=== PATIENT | female | born 1990 | race Caucasian/White ===

== ENCOUNTER 2019-08-17 12:13 | Emergency (ER) | payer OTHER, SELFPAY ==
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
== END 2019-08-17 16:18 | disposition home or self-care (01) ==
LOC: ERS 12:13
DX: O26.892 Other specified pregnancy related conditions, second trimester (principal); R10.9 Unspecified abdominal pain; O99.282 Endocrine, nutritional and metabolic diseases complicating pregnancy, second trimester; O99.342 Other mental disorders complicating pregnancy, second trimester; F41.9 Anxiety disorder, unspecified; F32.9 Major depressive disorder, single episode, unspecified; Z79.01 Long term (current) use of anticoagulants; Z79.899 Other long term (current) drug therapy
CPT/HCPCS: 76815

== ENCOUNTER 2019-12-30 06:36 | Inpatient (IN) | payer OTHER ==
[2019-12-30] MEDS: Lactated Ringer's 1,000 ML IV SCH ×2 (07:00→08:49)
[2019-12-30 07:04] VITALS: BMI 33.5
[2019-12-30] MEDS ORDERED: Promethazine HCl 25 MG/ML VIAL IM PRN ×3 (07:20→12:37)
[2019-12-30] MEDS ORDERED: Ondansetron PF 4 MG/2 ML Vial IVP PRN ×3 (07:20→12:37)
[2019-12-30] MEDS ORDERED: Methylergonovine 0.2 MG/ML VIAL IM PRN (07:20)
[2019-12-30] MEDS ORDERED: NS / Oxytocin 40 units/1000ml 1,000 ML IV PRN (07:20)
[2019-12-30] MEDS ORDERED: Ibuprofen 800 MG TAB PO PRN (07:20)
[2019-12-30] MEDS ORDERED: Acetaminophen 500 MG TAB PO PRN (07:20)
[2019-12-30] MEDS ORDERED: Butorphanol Tartrate 1 MG/ML VIAL SLOW IVP PRN (07:20)
[2019-12-30] MEDS ORDERED: Misoprostol 200 MCG TAB PR PRN (07:20)
[2019-12-30] MEDS ORDERED: HYDROcodone/Acetaminophen 5/325 mg Tablet PO PRN (07:20)
[2019-12-30] MEDS ORDERED: Lidocaine 1% (PF) 30 ML VIAL SC PRN (07:20)
[2019-12-30] MEDS ORDERED: hydrALAZINE 20 MG/ML VIAL SLOW IVP PRN ×2 (07:20→12:37)
[2019-12-30] MEDS ORDERED: Diphenoxylate HCl/Atropine Tablet PO PRN (07:20)
[2019-12-30] MEDS ORDERED: Carboprost 250 MCG/ML AMP IM PRN (07:20)
[2019-12-30] MEDS ORDERED: NS w/ Oxytocin 10 units 500 ML IV SCH (07:30)
[2019-12-30 08:12] LABS: Mean Corpuscular HGB CONC 32.7 g/dL (32.0-36.0); Mean Corpuscular Hemoglobin 25.7 pg (27.0-31.0); Mean Corpuscular Volume 78.6 fL (78.0-98.0); Mean Platelet Volume 9.6 fL (7.4-10.4); Platelet Count 269 thou/uL (130-400); RBC Distribution Width 12.4 % (11.5-14.5); Red Blood Cell (RBC) Count 4.28 mill/uL (4.20-5.40); White Blood Cell (WBC) Count 8.2 thou/uL (4.8-10.8)
[2019-12-30] MEDS ORDERED: Fentanyl 4 mcg/Bup 0.1% Cadd 100 ML ONE (08:36)
[2019-12-30 08:41] LABS: ALT (SGPT) 13 U/L (8-55); AST (SGOT) 17 U/L (5-34); Albumin 3.5 g/dL (3.5-5.0); Alkaline Phosphatase 119 U/L (40-110); Anion Gap 14 mmol/L (10-20); BUN (Urea Nitrogen) 12 mg/dL (7.0-18.7); Bilirubin, Total 0.2 mg/dL (0.2-1.2); Calc. Creatinine Clearance 172 mL/min (70-130); Calcium 8.4 mg/dL (7.8-10.44); Carbon Dioxide 19 mmol/L (22-29); Chloride 107 mmol/L (98-107); Estimated GFR-MDRD Greater than 90; Globulin 2.5 g/dL (2.4-3.5); Glucose 74 mg/dL (70-105); Potassium 4.3 mmol/L (3.5-5.1); Sodium 136 mmol/L (136-145)
[2019-12-30 08:46] LABS: HBSAg Index 0.19 S/CO (0-0.99); Hep B Surf Ag Non-Reactive S/CO (NonReactive)
[2019-12-30 08:50] LABS: Syphilis Antibody Nonreactive (Nonreactive); Syphilis Antibody Index 0.03 S/CO (<1.00 Non-Reactive)
[2019-12-30] MEDS ORDERED: Lidocaine 2% MPF 10 ML AMP (For Epidural Use) ONE (08:57)
[2019-12-30] MEDS ORDERED: diphenhydrAMINE 50 MG/ML VIAL IVP PRN (10:15)
[2019-12-30] MEDS ORDERED: Lactated Ringer's 500 ML IV PRN (10:15)
[2019-12-30] MEDS ORDERED: Naloxone HCl 0.4 mg/ml Vial IVP PRN ×2 (10:15)
[2019-12-30] MEDS ORDERED: EPHEDRINE 25 MG/5 ML SYRINGE SLOW IVP PRN (10:15)
[2019-12-30] MEDS ORDERED: Communication Order-Pharmacy FS SCH (10:15)
[2019-12-30] MEDS ORDERED: Fentanyl 4 mcg/Bupivacaine 0.1% Cassette 100 ML EPIDURAL SCH (10:15)
[2019-12-30] MEDS ORDERED: Acetaminophen 325 MG TAB PO PRN (10:15)
[2019-12-30] MEDS ORDERED: NS / Oxytocin 40 units/1000ml 1,000 ML ONE (10:21)
[2019-12-30] MEDS ORDERED: Lidocaine 1% (PF) 30 ML VIAL ONE (10:21)
--- NOTE | 2019-12-30 10:59 | PDOC.OPDEL ---
OB Operative/Delivery Note Delivery Dr/Surgeon: Corin Assist: n/a Pre-Delivery Diagnosis: medically indicated induction (GHTN) Procedure/Post Delivery Dx: spontaneous vaginal delivery Weeks gestation: 38 Anesthesia: epidural - Findings A Sex: male - Additional Findings/Plan Placenta delivered: spontaneous Repaired Obstetrical Laceration: none Estimated blood loss: 175cc Compilations/Other Findings: NC x 1 tight Post delivery plan: routine recovery
--- NOTE | 2019-12-30 10:59 | PDOC.LDHP ---
Labor and Delivery H&P Chief complaint: scheduled induction HPI: 29yo at 38w2d by LMP here for IOL due to GHTN. +some stars in vision, no scotomata, occ mild YANG. Some ctx. Current gestational age (weeks): 38 Due date: 01/11/20 Dating criteria: last menstrual period Grav: 3 Para: 2 Current complications: none Abnormal US findings: No Past Medical History: hypothyroid, depression Current medications: pre- vitamins, other (levothyroxine, lexapro, nexium) Previous surgical history: other (tonsils, thumb surgery) Allergies/Adverse Reactions: Allergies Allergy/AdvReac Type Severity Reaction Status Date / Time avocado Allergy Verified 12/30/19 07:06 Cayenne pepper Allergy Severe Anaphylaxis Uncoded 12/30/19 07:06 Social history: none - Physical Exam Vital signs reviewed and normal: yes Abnormal vital signs: BP nl-mild General: NAD Heart: RRR Lungs: CTAB Abdomen: gravid Extremeties: no edema FHT: category 1 [place] contractions every: 5min - Vaginal Exam cm dilated: 4 Effacement: 75% Station: -2 (arom clear scant) - OB Labs Blood type: A RH: positive Antibody Screen: negative HIV: negative RPR: negative HEPSAg: negative 1 hour GCT: negative GBS: negative Urine drug screen: negative Rubella: immune - Assessment L&D Assessment: medically indicated induction - Plan Plan: admit to L&D, labor augmentation if indicated, informed consent obtained, anesthesia consult for pain management -: PIH labs ordered and negative, mag for severe features.
[2019-12-30] MEDS ORDERED: Benzocaine-Menthol 82.5 ML CAN TOP PRN (12:37)
[2019-12-30] MEDS ORDERED: Milk Of Magnesia 30 ML UDCUP PO PRN (12:37)
[2019-12-30] MEDS ORDERED: Bisacodyl 10 MG SUPP PR PRN (12:37)
[2019-12-30] MEDS ORDERED: Preparation H Ointment 28 GM TUBE PR PRN (12:37)
[2019-12-30] MEDS ORDERED: NS / Oxytocin 40 units/1000ml 1,000 ML IV SCH (12:37)
[2019-12-30] MEDS ORDERED: Lanolin Ointment 7 GM TUBE TOP PRN (12:37)
[2019-12-30] MEDS ORDERED: diphenhydrAMINE 25 MG CAP PO PRN (12:37)
[2019-12-30] MEDS: Ibuprofen 800 MG TAB PO SCH ×2 (14:50→21:33)
[2019-12-30] MEDS: Ferrous Sulfate 325 MG TAB PO SCH (16:35)
[2019-12-30] MEDS: HYDROcodone/Acetaminophen 5/325 mg Tablet PO PRN ×2 (16:35→21:39)
[2019-12-30] MEDS: Docusate Calcium (SURFAK) 240 MG CAP PO SCH (21:33)
[2019-12-31] MEDS: Ibuprofen 800 MG TAB PO SCH ×3 (05:43→21:23)
[2019-12-31] MEDS: Ferrous Sulfate 325 MG TAB PO SCH ×2 (07:18→16:54)
[2019-12-31] MEDS: Docusate Calcium (SURFAK) 240 MG CAP PO SCH ×2 (07:51→21:23)
[2019-12-31] MEDS: Prenatal Vitamin 1 TAB PO SCH (07:51)
[2019-12-31] MEDS: HYDROcodone/Acetaminophen 5/325 mg Tablet PO PRN ×3 (07:52→21:24)
[2019-12-31] MEDS ORDERED: Adacel (T-DAP) 0.5 ML SYRINGE IM ONE (09:00)
--- NOTE | 2019-12-31 12:07 | PDOC.PP ---
Post Progress Note Post Day #: 1 PO intake tolerated: yes Flatus: yes Ambulation: yes Vital Signs (12 hours) Temp Pulse Resp BP Pulse Ox 12/31/19 08:08 97.9 F 73 20 123/86 99 12/31/19 05:40 97.9 F 70 16 120/79 Weight Weight 195 lb - Physical Examination General: NAD Respiratory: non-labored breathing Abdominal: no distention, appropriately TTP Fundus firm & at: umb Psychiatric: normal affect Result Diagrams: 12/30/19 07:53 12/30/19 07:53 Additional Labs: Post Labs Blood Type A POSITIVE 12/30/19 07:53 Hep Bs Antigen Non-Reactive S/CO (NonReactive) 12/30/19 07:53 - Assessment/Plan PPD1 s/p TSVD at 38w for GHTN VSSAF No sx PIH, normal labs, BP normal Pain controlled Breastpumping Cont lexapro and synthroid, ok while Infant in NICU Cont PP care, home tomorrow
[2020-01-01] MEDS: HYDROcodone/Acetaminophen 5/325 mg Tablet PO PRN ×2 (00:38→05:49)
[2020-01-01] MEDS: Ibuprofen 800 MG TAB PO SCH (05:08)
--- NOTE | 2020-01-01 08:19 | PDOC.PP ---
Post Progress Note Post Day #: 2 PO intake tolerated: yes Flatus: yes Ambulation: yes Weight Weight 195 lb - Physical Examination General: NAD Respiratory: non-labored breathing Abdominal: no distention, appropriately TTP Fundus firm & at: umb-2 Skin: no rash Neurological: no gross focal deficits Psychiatric: normal affect Result Diagrams: 12/30/19 07:53 12/30/19 07:53 Additional Labs: Post Labs Blood Type A POSITIVE 12/30/19 07:53 Hep Bs Antigen Non-Reactive S/CO (NonReactive) 12/30/19 07:53 - Assessment/Plan PPD2 s/p TSVD GHTN- no sx pih BP wnl Doing well , no issues . Rh pos RImm DC home FU 6w
[2020-01-01 08:31] VITALS: BP 113/63; TEMP 98.4
[2020-01-01] MEDS: Prenatal Vitamin 1 TAB PO SCH (08:38)
[2020-01-01] MEDS: Docusate Calcium (SURFAK) 240 MG CAP PO SCH (08:38)
[2020-01-01] MEDS: Ferrous Sulfate 325 MG TAB PO SCH (08:39)
== END 2020-01-01 12:50 | disposition home or self-care (01) | DRG 807 ==
LOC: L&D 06:36 → 3SW 14:06
PROVIDERS: ADMIT Student in an Organized Health Care Education/Training Program; ATTEND Student in an Organized Health Care Education/Training Program
PROC: 10E0XZZ Delivery of Products of Conception, External Approach (ICD-10-PCS; principal; 2019-12-30)
DX: O13.4 Gestational [pregnancy-induced] hypertension without significant proteinuria, complicating childbirth (principal); Z37.0 Single live birth; Z3A.38 38 weeks gestation of pregnancy; O69.1XX0 Labor and delivery complicated by cord around neck, with compression, not applicable or unspecified
CPT/HCPCS: 36415; 80053; 81003; 82570; 85027; 86780; 86850; 86900; 86901; 87340; J2001; J2590

== ENCOUNTER 2020-01-07 21:02 | Emergency (ER) | payer OTHER ==
[~2020-01-07 21:02] MED LIST: Iopamidol 370 76% 100 ML VIAL ONE
[2020-01-07] MEDS ORDERED: Ketorolac Tromethamine 30 MG/ML VIAL ONE (21:34)
[2020-01-07 21:42] LABS: #Eosinphils 0.2 thou/uL (0.0-0.7); #Lymphocytes 2.3 thou/uL (1.20-3.40); #Monocytes 0.7 thou/uL (0.11-0.59); #Neutrophils 5.7 thou/uL (1.40-6.50); %Basophils 0.5 % (0.0-1.0); %Eosinophils 2.1 % (0.0-10.0); %Lymphocytes 25.6 % (21.0-51.0); %Monocytes 7.4 % (0.0-10.0); %Neutrophils 64.4 % (42.0-75.0); Hemoglobin 11.6 g/dL (12.0-16.0); Mean Corpuscular HGB CONC 32.4 g/dL (32.0-36.0); Mean Corpuscular Hemoglobin 25.6 pg (27.0-31.0); Mean Corpuscular Volume 78.9 fL (78.0-98.0); Mean Platelet Volume 7.8 fL (7.4-10.4); Platelet Count 347 thou/uL (130-400); RBC Distribution Width 12.3 % (11.5-14.5); Red Blood Cell (RBC) Count 4.52 mill/uL (4.20-5.40); White Blood Cell (WBC) Count 8.9 thou/uL (4.8-10.8)
[2020-01-07 21:56] LABS: Bilirubin Negative (Negative); Blood, Urine Negative (Negative); Clarity Clear (Clear); Glucose, Urine (Dipstick) Normal (Negative); Leukocyte Negative Leu/uL (Negative); Nitrite Negative (Negative); Protein, Urine (Dipstick) Negative (Neg-Trace); Urobilinogen Normal mg/dL (Less than 2)
[2020-01-07 22:04] LABS: ALT (SGPT) 44 U/L (8-55); AST (SGOT) 20 U/L (5-34); Albumin 3.9 g/dL (3.5-5.0); Alkaline Phosphatase 120 U/L (40-110); Anion Gap 14 mmol/L (10-20); BUN (Urea Nitrogen) 8 mg/dL (7.0-18.7); Bilirubin, Total 0.2 mg/dL (0.2-1.2); Calc. Creatinine Clearance 0 mL/min (70-130); Calcium 9.3 mg/dL (7.8-10.44); Carbon Dioxide 24 mmol/L (22-29); Chloride 105 mmol/L (98-107); Estimated GFR-MDRD 89; Globulin 3.1 g/dL (2.4-3.5); Glucose 84 mg/dL (70-105); Lipase 22 U/L (8-78); Magnesium 2.2 mg/dL (1.6-2.6); Potassium 4.1 mmol/L (3.5-5.1); Sodium 139 mmol/L (136-145)
--- NOTE | 2020-01-07 22:13 | CT ---
CT OF THE ABDOMEN AND PELVIS WITH IV CONTRAST INDICATION: Abdominal pain; one week COMPARISON: None FINDINGS: ABDOMEN: Lung bases: Clear Liver: No focal lesion. Gallbladder: Normal appearing. Pancreas: Normal. Adrenal glands: Normal. Spleen: Normal. Kidneys and ureters: Normal. No hydronephrosis. Vasculature: Normal. Lymph nodes:No lymphadenopathy. Free fluid in abdomen:No free fluid is evident. PELVIS: Small and large bowel: Normal Appendix:Normal Bladder: Decompressed Rectal and perirectal soft tissues:Normal. Reproductive structures: Post gravid uterus. There is low density seen within the endometrial canal. Free fluid in pelvis: No free fluid is evident. Lymphadenopathy pelvis: No lymphadenopathy is evident. Osseous structures: No acute osseous abnormality. No destructive osteolytic or osteoblastic lesion i s identified. There is scattered degenerative and osteoarthritic changes. Soft tissues:Normal. IMPRESSION: 1. Post gravid uterus with nonspecific mild low-density distending the endometrial canal. Recommend c orrelation with gynecological examination. If there is clinical concern for retained products of conception, pelvic ultrasound may be helpful for additional characterization. 2. No additional abnormality seen.
== END 2020-01-07 23:25 | disposition home or self-care (01) ==
LOC: ERS 21:02
DX: R10.31 Right lower quadrant pain (principal); R10.32 Left lower quadrant pain; F41.9 Anxiety disorder, unspecified; F32.9 Major depressive disorder, single episode, unspecified
CPT/HCPCS: 36415; 74177; 80053; 81003; 83605; 83690; 83735; 85025; 96361; 96374; J1885; Q9967

== ENCOUNTER 2022-05-07 14:53 | Outpatient (CLI) | payer OTHER | END 2022-05-07 14:54 | disposition home or self-care (01) | LOC: BICMAMMO 14:53 | PROVIDERS: ATTEND Advanced Practice Midwife | DX: N63.10 Unspecified lump in the right breast, unspecified quadrant (principal) | CPT/HCPCS: 77066; G0279 ==